=== PATIENT | female | born 1965 | race Hispanic/Latino ===

== ENCOUNTER 2017-02-06 09:21 | Emergency (ER) | payer MEDICARE ==
[2017-02-06 09:22] VITALS: BMI 32.1
[2017-02-06 09:36] VITALS: BP 130/77; PULSE 89; RESP 16; TEMP 98; O2SAT 99
--- NOTE | 2017-02-06 10:10 | ED PDOC ---
Arrival/HPI - General Chief Complaint: Rib Injury Time Seen by Provider: 02/06/17 09:44 Historian: Patient - History of Present Illness Narrative History of Present Illness (Text): 02/06/17 10:08 51yo female with PMHx of Diabetes and hep C in ED complaining of right anterior rib pain x 7days. States the exercise machine she was using hit her to the area. she came to ED today for the persistent pain. Did not take any analgesic. Pain is worse with movement. Denies abdominal pain, nausea, vomiting, chest pain , any other complaint. Past Medical History - Provider Review Nursing Documentation Reviewed: Yes - Infectious Disease Hx of Infectious Diseases: None - Tetanus Immunization Tetanus Immunization: Unknown - Reproductive Menopause: Yes - Cardiac Hx Cardiac Disorders: No - Pulmonary Hx Respiratory Disorders: No - Neurological Hx Neurological Disorder: No - HEENT Hx HEENT Disorder: No - Renal Hx Renal Disorder: No - Endocrine/Metabolic Hx Diabetes Mellitus Type 2: Yes - Hematological/Oncological Hx Blood Transfusions: No Hx Blood Transfusion Reaction: No Hx Hepatitis C: Yes - Integumentary Hx Dermatological Disorder: No - Musculoskeletal/Rheumatological Hx Musculoskeletal Disorders: No - Gastrointestinal Hx Gastrointestinal Disorders: No - Genitourinary/Gynecological Hx Genitourinary Disorders: No - Psychiatric Hx Psychophysiologic Disorder: Yes Hx Anxiety: Yes Hx Depression: Yes Hx Substance Use: Yes (COCAINE, HEROIN) - Surgical History Hx Cholecystectomy: Yes - Anesthesia Hx Anesthesia: Yes Family/Social History - Physician Review Nursing Documentation Reviewed: Yes Family/Social History: Unknown Family HX Smoking Status: Former Smoker Hx Alcohol Use: No Hx Substance Use: Yes (COCAINE, HEROIN) Allergies/Home Meds Allergies/Adverse Reactions: Allergies No Known Allergies Allergy (Verified 02/06/17 09:29) Home Medications: Home Meds Medication Instructions Recorded Confirmed ALPRAZolam [Xanax] 1 mg PO BID 05/25/15 02/06/17 Insulin Aspart, Recombinant 12 unit SC ACB 05/25/15 02/06/17 [Novolog] Insulin Detemir [Levemir Flexpen] 30 unit SC ACB 05/25/15 02/06/17 Insulin Detemir [Levemir Flexpen] 55 unit SC HS 05/25/15 02/06/17 buPROPion XL [Wellbutrin XL] 300 mg PO DAILY 05/25/15 02/06/17 Ledipasvir/Sofosbuvir [Harvoni 1 tab PO DAILY 02/06/17 02/06/17 90-400 mg Tablet] Review of Systems - Physician Review All systems were reviewed & negative as marked: Yes - Review of Systems Constitutional: Normal Eyes: Normal ENT: Normal Respiratory: Normal Cardiovascular: Normal Gastrointestinal: Normal Genitourinary Female: Normal Musculoskeletal: Arthralgias (Right ribs pain) Skin: Normal Neurological: Normal Endocrine: Normal Hemo/Lymphatic: Normal Psychiatric: Normal Physical Exam Vital Signs Reviewed: Yes Vital Signs Temp Pulse Resp BP Pulse Ox 02/06/17 09:31 98.0 F 89 16 130/77 99 Temperature: Afebrile Blood Pressure: Normal Pulse: Regular Respiratory Rate: Normal Appearance: Positive for: Well-Appearing, Non-Toxic, Comfortable Pain Distress: None Mental Status: Positive for: Alert and Oriented X 3 - Systems Exam Head: Present: Atraumatic, Normocephalic Pupils: Present: PERRL Extroacular Muscles: Present: EOMI Conjunctiva: Present: Normal Mouth: Present: Moist Mucous Membranes Neck: Present: Normal Range of Motion Respiratory/Chest: Present: Clear to Auscultation, Good Air Exchange, Tender to Palpation (Right anterior ribs). No: Respiratory Distress, Accessory Muscle Use , Wheezes, Decreased Breath Sounds, Rales, Retracting, Rhonchi, Tachypneic Cardiovascular: Present: Regular Rate and Rhythm, Normal S1, S2. No: Murmurs Abdomen: Present: Normal Bowel Sounds. No: Tenderness, Distention, Peritoneal Signs Back: Present: Normal Inspection Upper Extremity: Present: Normal Inspection. No: Cyanosis, Edema Lower Extremity: Present: Normal Inspection. No: Edema Neurological: Present: GCS=15, CN II-XII Intact, Speech Normal Skin: Present: Warm, Dry, Normal Color. No: Rashes Psychiatric: Present: Alert, Oriented x 3, Normal Insight, Normal Concentration Medical Decision Making ED Course and Treatment: 02/06/17 11:22 Right ribs/chest xray - No acute fracture. No PTX Result was DW the pt. She was DC home with a rx of Naprosyn 500mg. Referred to her PMD. TRT ED for any new or worsening symptoms. - RAD Interpretation Radiology Orders: 02/06/17 09:47 RIBS RIGHT & PA CHEST [RAD] Stat - Medication Orders Current Medication Orders: Discontinued Medications Ketorolac Tromethamine (Toradol) 60 mg IM STAT STA Stop: 02/06/17 09:48 Last Admin: 02/06/17 09:56 Dose: 60 mg Disposition/Present on Arrival - Present on Arrival Any Indicators Present on Arrival: No History of DVT/PE: No History of Uncontrolled Diabetes: Yes Urinary Catheter: No History of Decub. Ulcer: No History Surgical Site Infection Following: None - Disposition Have Diagnosis and Disposition been Completed?: Yes Diagnosis: Rib contusion Disposition: HOME/ ROUTINE Disposition Time: 11:25 Patient Plan: Discharge Patient Problems: Current Active Problems Problem Status Onset Rib contusion Acute Condition: STABLE Discharge Instructions (ExitCare): Rib Contusion (ED) Additional Instructions: Follow up with your Doctor Return to ED for any new or worsening symptom Referrals: Otis Murray MD [Primary Care Provider] - Follow up with primary
--- NOTE | 2017-02-06 11:48 | RAD ---
PROCEDURE: Radiographs of the Chest and Right Ribs. HISTORY: rib pain s/p trauma COMPARISON: 04/19/2016 the lungs are. TECHNIQUE: Frontal radiograph of the chest and multiple oblique radiographs of the right ribs were obtained. FINDINGS: RIGHT RIBS: No acute rib fracture or focal lesion visualized. LUNGS: Well inflated and clear. PLEURA: No pneumothorax or pleural fluid. CARDIOVASCULAR: Normal sized heart. No pulmonary vascular congestion. OTHER FINDINGS: None. IMPRESSION: No acute findings. No right rib fracture.
== END 2017-02-06 11:40 | disposition home or self-care (01) ==
LOC: ED 09:21
DX: S20.211A Contusion of right front wall of thorax, initial encounter (principal); W31.9XXA Contact with unspecified machinery, initial encounter; E11.9 Type 2 diabetes mellitus without complications
CPT/HCPCS: 71101; 96372; 99283; J1885

== ENCOUNTER 2018-01-19 15:06 | Emergency (ER) | payer MEDICARE ==
[2018-01-19 15:06] VITALS: BMI 27.8
[2018-01-19] MEDS ORDERED: Dextrose 50% SYRINGE Inj (50 ml) ONE (15:11)
--- NOTE | 2018-01-19 15:20 | ED PDOC ---
Arrival/HPI - General Time Seen by Provider: 01/19/18 15:08 Historian: , EMS - Critical Care Critical Care Minutes: 30 minutes - History of Present Illness Narrative History of Present Illness (Text): 01/19/18 15:17 52 year old female, whose past medical history includes diabetes, hepatitis C and cholecystectomy, brought in by EMS status post being found unresponsive by family. Patient was last know well at 12:00 today and was found unresponsive on her bed just prior to arrival. EMS gave the patient 1 tube of glucose which mildly aroused the patient; she was also given oxygen and then brought in to the Emergency department. Patient was seen by me immediately on arrival. PMD: Dr. Murray Time/Duration: 1-3 hours Symptom Onset: Sudden Symptom Course: Improving Context: Home Past Medical History - Provider Review Nursing Documentation Reviewed: Yes - Infectious Disease Hx of Infectious Diseases: None - Tetanus Immunization Tetanus Immunization: Unknown - Cardiac Hx Cardiac Disorders: No - Pulmonary Hx Respiratory Disorders: No - Neurological Hx Neurological Disorder: No - HEENT Hx HEENT Disorder: No - Renal Hx Renal Disorder: No - Endocrine/Metabolic Hx Diabetes Mellitus Type 2: Yes Hx Hypothyroidism: Yes - Hematological/Oncological Hx Hepatitis C: Yes - Integumentary Hx Dermatological Disorder: No - Musculoskeletal/Rheumatological Hx Musculoskeletal Disorders: No - Gastrointestinal Hx Gastrointestinal Disorders: No - Genitourinary/Gynecological Hx Genitourinary Disorders: No - Psychiatric Hx Psychophysiologic Disorder: Yes Hx Anxiety: Yes Hx Depression: Yes Hx Substance Use: Yes (COCAINE, HEROIN) - Surgical History Hx Cholecystectomy: Yes - Anesthesia Hx Anesthesia: Yes Family/Social History - Physician Review Nursing Documentation Reviewed: Yes Family/Social History: Unknown Family HX Smoking Status: Former Smoker Hx Alcohol Use: No Hx Substance Use: Yes (COCAINE, HEROIN) Allergies/Home Meds Allergies/Adverse Reactions: Allergies No Known Allergies Allergy (Verified 01/19/18 15:56) Home Medications: Home Meds Medication Instructions Recorded Confirmed Insulin Aspart, Recombinant 12 unit SC ACB 05/25/15 06/21/17 [Novolog] Insulin Detemir [Levemir Flexpen] 24 unit SC ACB 05/25/15 06/21/17 buPROPion XL [Wellbutrin XL] 300 mg PO DAILY 05/25/15 06/21/17 Review of Systems - Physician Review All systems were reviewed & negative as marked: Yes - Review of Systems Constitutional: absent: Fevers Respiratory: absent: Cough Gastrointestinal: absent: Vomiting Physical Exam Vital Signs Reviewed: Yes Vital Signs Temp Pulse Resp BP Pulse Ox 01/19/18 15:27 94.9 F L 93 H 20 124/82 98 Temperature: Hypothermic Blood Pressure: Normal Pulse: Tachycardic Respiratory Rate: Normal Pain Distress: None Mental Status: Positive for: other (Awake and alert. Responsive to pain and verbal stimuli but not making sensical words.) - Systems Exam Head: Present: Atraumatic, Normocephalic Pupils: Present: Other (pupils are 3mm bilaterally and reactive) Extroacular Muscles: Present: EOMI Conjunctiva: Present: Normal Mouth: Present: Moist Mucous Membranes Neck: Present: Normal Range of Motion. No: MIDLINE TENDERNESS, Paraspinal Tenderness Respiratory/Chest: Present: Clear to Auscultation, Good Air Exchange. No: Respiratory Distress, Accessory Muscle Use Cardiovascular: Present: Regular Rate and Rhythm, Normal S1, S2. No: Murmurs Abdomen: No: Tenderness, Distention, Peritoneal Signs Back: Present: Normal Inspection. No: CVA Tenderness, Midline Tenderness Upper Extremity: Present: Normal Inspection. No: Cyanosis, Edema Lower Extremity: Present: Normal Inspection. No: Edema Neurological: Present: GCS=15, CN II-XII Intact Skin: Present: Warm, Dry, Normal Color. No: Rashes Psychiatric: Present: Alert Medical Decision Making ED Course and Treatment: 01/19/18 15:21 Impression: 52 year old female brought in by EMS presents status post being found unresponsive just prior to arrival. Differential Diagnosis included but are not limited to: hypoglycemia secondary to medication vs. diet vs. infection Plan: -- Chest xray -- EKG -- Blood culture, urine culture -- Urinalysis -- Labs -- Dextrose 50%, Sodium Chloride IV fluids -- Reassess and disposition Prior Visits: Notes and results from previous visits were reviewed. Patient was last seen in the emergency department on 06/21/17 with similar symptoms, was diagnosed with hypoglycemia, and was discharged home. Progress Notes: 01/19/18 15:21 Patient was given 1 amp of Dextrose 50; patient is gradually waking up. 01/19/18 15:24 Patient reevaluated and is now awake, alert, oriented x3, and speaking in full sentences. Mother is at bedside; additional history provided. Patient uses Novolog before each meal and Levemir in the morning and evening. Patient has been compliant with her medications and has been eating a proper diet but today only had a salad after she took her meds. Patient denies fever, chills, urinary symptoms, and trauma. 01/19/18 16:59 Patient feels much better. She is comfortable and in no acute distress. 01/19/18 17:46 Finger sticks stable. Patient eating in the ED without n/v/d. Patient appears happy and well. No lightheadedness or dizziness when walking. She will be discharged home to f/u with her PMD in 1-2days. Advised to return to the ED if symptoms worsen or any other concern. - Critical Care Critical Care Minutes: 30 minutes - Lab Interpretations Lab Results: 01/19/18 15:43 01/19/18 15:43 Lab Results 01/19/18 17:05: POC Glucose (mg/dL) 120 H 01/19/18 16:30: Urine Color Yellow, Urine Appearance Clear, Urine pH 6.0, Ur Specific [place] >= 1.030, Urine Protein Negative, Urine Glucose (UA) 500 H, Urine Ketones Trace H, Urine Blood Negative, Urine Nitrate Negative, Urine Bilirubin Negative, Urine Urobilinogen 0.2, Ur Leukocyte Esterase Negative 01/19/18 15:43: Sodium 142, Potassium 4.1, Chloride 104, Carbon Dioxide 28, Anion Gap 15, BUN 17, Creatinine 0.8, Est GFR ( Amer) > 60, Est GFR (Non- Af Amer) > 60, Random Glucose 182 H, Calcium 9.0, Magnesium 2.0, Total Bilirubin 1.1, AST 75 H, ALT 163 H, Alkaline Phosphatase 105, Total Protein 6.5 , Albumin 4.1, Globulin 2.4, Albumin/Globulin Ratio 1.7 01/19/18 15:43: WBC 5.8 D, RBC 4.45, Hgb 14.1, Hct 40.1, MCV 90.1, MCH 31.7, MCHC 35.2, RDW 13.3, Plt Count 139, MPV 9.3, Gran % 72.2 H, Lymph % (Auto) 22.7 , [place] % (Auto) 3.3, Eos % (Auto) 1.6, Baso % (Auto) 0.2, Gran # 4.16, Lymph # ( Auto) 1.3, [place] # (Auto) 0.2, Eos # (Auto) 0.1, Baso # (Auto) 0.01 - RAD Interpretation Narrative RAD Interpretations (Text): 01/19/2018 15:54:02 Chest Xray FINDINGS: LUNGS: No active pulmonary disease. PLEURA: No significant pleural effusion identified, no pneumothorax apparent. CARDIOVASCULAR: Normal. OSSEOUS STRUCTURES: No significant abnormalities. VISUALIZED UPPER ABDOMEN: Normal. OTHER FINDINGS: None. IMPRESSION: No active disease. Radiology Orders: 01/19/18 15:21 CHEST PORTABLE [RAD] Stat - EKG Interpretation EKG Interpretation (Text): 01/19/18 15:54 EKG: Ordered, reviewed, and independently interpreted the EKG. Rate : 84 BPM Rhythm : NSR Interpretation : No ST-segment elevations or depressions, no T-wave inversions, normal intervals. Some motion artifact. Interpreted by ED Physician: Yes Type: 12 lead EKG - Medication Orders Current Medication Orders: Sodium Chloride (Sodium Chloride 0.9%) 1,000 mls @ 150 mls/hr IV .[id number] BLANE Last Admin: 01/19/18 15:58 Dose: 150 mls/hr eMAR Start Stop Document 01/19/18 15:58 [facility] (Rec: 01/19/18 15:58 [facility] [id number]) Intravenous Solution Start Date 01/19/18 Start Time 15:58 Discontinued Medications Dextrose (Dextrose 50% Inj) 50 ml IVP STAT STA Stop: 01/19/18 15:23 Last Admin: 01/19/18 15:15 Dose: 50 ml IVP Administration Document 01/19/18 15:15 [facility] (Rec: 01/19/18 15:59 [facility] [id number]) Charges for Administration # of IVP Administrations 1 - Scribe Statement The provider has reviewed the documentation as recorded by the Christina Narvaez Provider Scribe Attestation: All medical record entries made by the Scribe were at my direction and personally dictated by me. I have reviewed the chart and agree that the record accurately reflects my personal performance of the history, physical exam, medical decision making, and the department course for this patient. I have also personally directed, reviewed, and agree with the discharge instructions and disposition. Disposition/Present on Arrival - Present on Arrival Any Indicators Present on Arrival: Yes History of DVT/PE: No History of Uncontrolled Diabetes: Yes Urinary Catheter: No History Surgical Site Infection Following: None - Disposition Have Diagnosis and Disposition been Completed?: Yes Diagnosis: Hypoglycemia Disposition: HOME/ ROUTINE Disposition Time: 17:48 Patient Plan: Discharge Patient Problems: Current Active Problems Problem Status Onset Hypoglycemia Acute Condition: IMPROVED Discharge Instructions (ExitCare): Low Blood Sugar, Adult (DC), Low Blood Sugar in People With Diabetes Additional Instructions: Ms Carr, thank you for letting us take care of you today. Your provider was Dr. Johnston You were treated for Hypoglycemia. The emergency medical care you received today was directed at your acute symptoms. If you were prescribed any medication, please fill it and take as directed. It may take several days for your symptoms to resolve. Return to the Emergency Department if your symptoms worsen, do not improve, or if you have any other problems. Please contact your doctor or call one of the physicians/clinics you have been referred to that are listed on the Patient Visit Information form that is included in your discharge packet. Bring any paperwork you were given at discharge with you along with any medications you are taking to your follow up visit. Our treatment cannot replace ongoing medical care by a primary care provider (PCP) outside of the emergency department. Thank you for allowing the [facility] team to be part of your care today. If you had an X-Ray or CT scan: A Radiologist will review the ED reading if any change in treatment is needed we will contact you. If you had a blood, urine, or wound culture: It will take several days for the results, if any change in treatment is needed we will contact you. If you had an STI test: It will take 48 hours for the results. Please call after 1 week if you have not heard back. Referrals: Otis Murray MD [Primary Care Provider] - Follow up with primary Forms: WORK NOTE, [id number] ([place])
[2018-01-19] MEDS ORDERED: Dextrose 50% SYRINGE Inj (50 ml) IVP STA (15:22)
[2018-01-19 15:29] VITALS: O2SAT 98
[2018-01-19] MEDS ORDERED: Sodium Chloride 0.9% 1,000 ML IV SCH (15:30)
--- NOTE | 2018-01-19 15:55 | RAD ---
HISTORY: Sepsis Patient COMPARISON: No prior. FINDINGS: LUNGS: No active pulmonary disease. PLEURA: No significant pleural effusion identified, no pneumothorax apparent. CARDIOVASCULAR: Normal. OSSEOUS STRUCTURES: No significant abnormalities. VISUALIZED UPPER ABDOMEN: Normal. OTHER FINDINGS: None. IMPRESSION: No active disease.
[2018-01-19 16:00] LABS: BASO # 0.01 K/mm3 (0.0-2.0); BASO % 0.2 % (0.0-3.0); EOS # 0.1 (0.0-0.7); EOS % 1.6 % (1.5-5.0); GRAN # 4.16 (1.4-6.5); GRAN % 72.2 % (50.0-68.0); HEMOGLOBIN 14.1 g/dL (12.0-16.0); LYMPH # 1.3 (1.2-3.4); LYMPH % 22.7 % (22.0-35.0); MEAN CELL VOLUME 90.1 fl (80.0-105.0); MEAN CORPUSCULAR HEMOGLOBIN 31.7 pg (25.0-35.0); MEAN CORPUSCULAR HGB CONC 35.2 g/dl (31.0-37.0); MEAN PLATELET VOLUME 9.3 fl (7.0-11.0); MONO # 0.2 (0.1-0.6); MONO % 3.3 % (1.0-6.0); RBC 4.45 10^6/uL (3.5-6.1); RED CELL DISTRIBUTION WIDTH 13.3 % (11.5-14.5); WHITE BLOOD COUNT 5.8 10^3/ul (4.5-11.0)
[2018-01-19 16:11] LABS: ALB/GLOB RATIO 1.7 (1.1-1.8); ALBUMIN 4.1 g/dL (3.0-4.8); ALT/SGPT 163 U/L (7-56); AST/SGOT 75 U/L (14-36); BLOOD UREA NITROGEN 17 mg/dL (7-21); GFR AFRICAN-AMERICAN > 60; GFR NON-AFRICAN AMERICAN > 60
[2018-01-19 16:47] LABS: URINE BILIRUBIN NEGATIVE (NEGATIVE); URINE BLOOD NEGATIVE (NEGATIVE); URINE GLUCOSE (UA) 500 mg/dL (NEGATIVE); URINE LEUKOCYTE ESTERASE NEGATIVE Leu/uL (NEGATIVE); URINE PROTEIN NEGATIVE mg/dL (<30 mg/dL); URINE UROBILINOGEN 0.2 E.U./dL (<1 E.U./dL)
[2018-01-19 16:48] LABS: URINE APPEARANCE CLEAR (CLEAR); URINE COLOR YELLOW (YELLOW)
[2018-01-19 18:31] VITALS: BP 120/78; PULSE 80; RESP 17
[2018-01-19 18:45] VITALS: TEMP 98.1
--- NOTE | 2018-01-20 10:40 | CARD ---
APPROVED REPORT EKG Measurement Heart [id number] <Conclusion> Sinus rhythm NSSTW changes Limited ECG b/o electrical artifact
== END 2018-01-19 18:45 | disposition home or self-care (01) ==
LOC: ED 15:06
DX: E11.649 Type 2 diabetes mellitus with hypoglycemia without coma (principal); B19.20 Unspecified viral hepatitis C without hepatic coma; Z90.49 Acquired absence of other specified parts of digestive tract
CPT/HCPCS: 71045; 80053; 81003; 82948; 83735; 85025; 87040; 87086; 87181; 93005; 96374; 99285; J7030

== ENCOUNTER 2018-11-11 08:46 | Outpatient (CLI) | payer MEDICARE | END 2018-11-11 08:47 | disposition home or self-care (01) | LOC: LAB 08:46 ==